=== PATIENT | female | born 1975 | race Caucasian/White ===

== ENCOUNTER 2022-07-19 12:03 | Outpatient (CLI) | payer OTHER, BC, SELFPAY ==
[2022-07-19 14:52] LABS: Chlamydia DNA Amplified* NOT DETECTED (No Detected); GC DNA Amplified* NOT DETECTED (No Detected)
== END 2022-07-19 12:04 | disposition home or self-care (01) ==
PROVIDERS: PCP Family Medicine; Visit Provider Registered Nurse
DX: Z01.419 Encounter for gynecological examination (general) (routine) without abnormal findings (principal); R10.2 Pelvic and perineal pain; Z11.3 Encounter for screening for infections with a predominantly sexual mode of transmission
CPT/HCPCS: 87086; 87491; 87591; 87624; 88175

== ENCOUNTER 2022-07-28 12:38 | Outpatient (CLI) | payer OTHER, BC, SELFPAY ==
[2022-07-28 12:08] LABS: Cholesterol* 229 mg/dL (90-199); Triglycerides* 115 mg/dL (40-149)
[2022-07-28 12:09] LABS: HDL Cholesterol* 47 mg/dL (>=50); LDL Cholesterol Calculated 159 mg/dL (<100)
[2022-07-28 12:28] LABS: Hepatitis B Surface Antigen* Negative (Negative)
[2022-07-28 12:37] LABS: HIV 1/2/P24 Combo Screen* Negative (Negative)
[2022-07-28 12:45] LABS: Hepatitis C Virus Antibody* Negative (Negative)
[2022-07-29 17:01] LABS: Rapid Plasma Reagin (RPR) Non Reactive (Non Reactive)
== END 2022-07-28 12:39 | disposition home or self-care (01) ==
PROVIDERS: PCP Family Medicine; Visit Provider Registered Nurse
DX: Z01.419 Encounter for gynecological examination (general) (routine) without abnormal findings (principal); Z13.6 Encounter for screening for cardiovascular disorders; Z11.3 Encounter for screening for infections with a predominantly sexual mode of transmission; Z11.4 Encounter for screening for human immunodeficiency virus [HIV]
CPT/HCPCS: 80061; 86592; 86703; 86803; 87340

== ENCOUNTER 2022-08-18 07:13 | Outpatient (CLI) | payer OTHER, BC, SELFPAY | END 2022-08-18 07:14 | disposition home or self-care (01) | PROVIDERS: PCP Family Medicine; Visit Provider Surgery | DX: Z12.11 Encounter for screening for malignant neoplasm of colon (principal); K63.5 Polyp of colon; K62.1 Rectal polyp; Z83.71 Family history of colonic polyps | CPT/HCPCS: 45385; 88305; 99153; J1200; J2250; J3010 ==

== ENCOUNTER 2022-09-13 17:52 | Outpatient (CLI) | payer OTHER, BC, SELFPAY ==
--- NOTE | 2022-09-13 18:00 | CRLHL7_ITS ---
For Patients: As a result of the Century Cures Act, medical imaging exams and procedure reports are released immediately into your electronic medical record. You may view this report before your referring provider. If you have questions, please contact your health care provider. BILATERAL SCREENING MAMMOGRAM WITH COMPUTER-AIDED DETECTION TECHNIQUE: CC and MLO views were obtained. These mammographic images have been obtained using full-field digital technique. These mammographic images were interpreted with the benefit of computer-aided detection. COMPARISON FILM: 10/28/19, 06/05/18, 11/14/13. FINDINGS: There are scattered areas of fibroglandular density IMPRESSION: There is no radiographic evidence for malignancy. ASSESSMENT: BI-RADS Category 1: Negative RECOMMENDATION: Routine screening mammogram in 1 year. A lay language report of this examination will be provided to the patient. Tirso Bedoya M.D. Diagnostic Radiologist [email or web address] Transcribed: 4:02 pm DW/Dictated by: Tirso Bedoya MD @ 09/14/2022 12:09:00 PM (Electronically Signed)
== END 2022-09-13 17:53 | disposition home or self-care (01) ==
LOC: MAMMO 17:53
PROVIDERS: PCP Family Medicine; Visit Provider Registered Nurse
DX: Z12.31 Encounter for screening mammogram for malignant neoplasm of breast (principal)
CPT/HCPCS: 77067

== ENCOUNTER 2022-09-21 11:43 | Outpatient (CLI) | payer OTHER, BC, SELFPAY ==
[2022-09-21 14:43] LABS: Albumin* 4.3 g/dL (3.3-5.0); Chloride* 106 mmol/L (96-114); Potassium* 4.6 mmol/L (3.6-5.1); Sodium* 141 mmol/L (135-149)
[2022-09-21 14:46] LABS: Alanine Aminotransferase* 46 U/L (4-35); Alkaline Phosphatase* 110 U/L (40-150); Aspartate Amino Transferase* 33 U/L (12-35); Bilirubin Total* 0.3 mg/dL (0.1-1.5); Blood Urea Nitrogen* 14 mg/dL (5-24); Carbon Dioxide* 26 mmol/L (20-32); Creatinine* 0.6 mg/dL (0.5-1.5); Estimated Glomerular Filt Rate 113 ml/min; Glucose* 90 mg/dL (60-115); Total Protein* 7.6 g/dL (6.0-8.3)
[2022-09-21 14:47] LABS: Calcium* 9.3 mg/dL (8.4-10.6)
== END 2022-09-21 11:44 | disposition home or self-care (01) ==
PROVIDERS: PCP Family Medicine; Visit Provider Family Medicine
DX: R53.83 Other fatigue (principal); K76.0 Fatty (change of) liver, not elsewhere classified; R00.2 Palpitations; E66.9 Obesity, unspecified
CPT/HCPCS: 80053; 84443

== ENCOUNTER 2023-09-12 14:06 | Outpatient (CLI) | payer BC, SELFPAY ==
[2023-09-12 23:39] LABS: Chlamydia DNA Amplified* NOT DETECTED (No Detected); GC DNA Amplified* NOT DETECTED (No Detected)
== END 2023-09-12 14:07 | disposition home or self-care (01) ==
PROVIDERS: PCP Family Medicine; Visit Provider Registered Nurse
DX: Z11.3 Encounter for screening for infections with a predominantly sexual mode of transmission (principal)
CPT/HCPCS: 86592; 86703; 86803; 87340; 87491; 87591

== ENCOUNTER 2023-12-05 09:08 | Outpatient (CLI) | payer BC, SELFPAY ==
--- NOTE | 2023-12-05 09:15 | MM_ITS ---
Patient: JASON KOO Facility:?[facility] Patient ID:?[id number] Site Patient [id number]:?[id number]. Site :?[id number] Study:?XRay-Breast Bilateral 3D W/CAD-12/05/2023 10:05:15 AM Ordering Physician:Joe Final Report: BILATERAL SCREENING MAMMOGRAM WITH COMPUTER-AIDED DETECTION AND TOMOSYNTHESIS TECHNIQUE: CC and MLO views were obtained. These mammographic images have been obtained using full-field digital technique. These mammographic images were interpreted with the benefit of computer-aided detection. Breast Tomosynthesis was used in this interpretation. COMPARISON FILM: 09/13/22, 10/28/19, 06/05/18. FINDINGS: The breasts are almost entirely fatty. IMPRESSION: There is no radiographic evidence for malignancy. ASSESSMENT: BI-RADS Category 1: Negative RECOMMENDATION: Routine screening mammogram in 1 year. A lay language report of this examination will be provided to the patient. Tirso Bedoya M.D. Diagnostic Radiologist [email or web address] DSM/sp R& Transcribed: 7:00 p.m. SP/Dictated by: Tirso Bedoya MD @ 12/05/2023 12:24:00 PM Signed by:?Tirso Bedoya MD @12/06/2023 5:43:20 AM (Electronic Signature)
== END 2023-12-05 09:09 | disposition home or self-care (01) ==
LOC: MAMMO 09:09
PROVIDERS: PCP Family Medicine; Visit Provider Registered Nurse
DX: Z12.31 Encounter for screening mammogram for malignant neoplasm of breast (principal)
CPT/HCPCS: 77063; 77067

== ENCOUNTER 2024-04-10 15:24 | Outpatient (CLI) | payer BC, SELFPAY | END 2024-04-10 15:25 | disposition home or self-care (01) | PROVIDERS: PCP Family Medicine; Visit Provider Family Medicine | DX: R53.83 Other fatigue (principal); E66.01 Morbid (severe) obesity due to excess calories; K76.0 Fatty (change of) liver, not elsewhere classified; R20.0 Anesthesia of skin; R20.2 Paresthesia of skin | CPT/HCPCS: 80053; 82607; 82728; 84443 ==

== ENCOUNTER 2025-07-23 09:02 | Outpatient (CLI) | payer BC, SELFPAY ==
--- NOTE | 2025-07-23 09:15 | CRLHL7_ITS ---
For Patients: As a result of the Century Cures Act, medical imaging exams and procedure reports are released immediately into your electronic medical record. You may view this report before your referring provider. If you have questions, please contact your health care provider. INDICATION: BILATERAL SCREENING MAMMOGRAM, ASYMPTOMATIC 50 Y/O FEMALE COMPARISON: 12/05/2023, 09/13/2022, 10/28/2019 TECHNIQUE: Digital mammogram in CC and MLO projections including computer-aided detection (CAD) and tomosynthesis. BREAST COMPOSITION: The breasts are almost entirely fatty. FINDINGS: No suspicious findings. ASSESSMENT: BI-RADS 1 Negative RECOMMENDATION: Annual screening mammogram. A lay language report of this examination will be provided to the patient. Dictated by: Tirso Bedoya MD @ 07/23/2025 10:25:43 (Electronically Signed)
== END 2025-07-23 09:03 | disposition home or self-care (01) ==
LOC: MAMMO 09:03
PROVIDERS: PCP Family Medicine; Visit Provider Family Medicine
DX: Z12.31 Encounter for screening mammogram for malignant neoplasm of breast (principal)
CPT/HCPCS: 77063; 77067